=== PATIENT | male | born 2000 | race Caucasian/White ===

== ENCOUNTER 2023-09-10 12:13 | Emergency (ER) | payer OTHER ==
[~2023-09-10] VITALS: Ht 175.3 cm; Wt 106.1 kg
[2023-09-10 12:36] VITALS: BP 131/60; PULSE 95; RESP 18; TEMP 98.2; O2SAT 99
[2023-09-10] MEDS ORDERED: IBUP-2213 PO (14:25)
== END 2023-09-10 14:35 | disposition home or self-care (01) ==
LOC: MED 12:13
DX: S83.92XA Sprain of unspecified site of left knee, initial encounter (principal); R03.0 Elevated blood-pressure reading, without diagnosis of hypertension; Z79.1 Long term (current) use of non-steroidal anti-inflammatories (NSAID); W01.0XXA Fall on same level from slipping, tripping and stumbling without subsequent striking against object, initial encounter; Y92.89 Other specified places as the place of occurrence of the external cause; Y93.89 Activity, other specified; Y99.8 Other external cause status
CPT/HCPCS: 29505; 73562; 99283

== ENCOUNTER 2024-03-07 02:45 | Emergency (ER) | payer OTHER ==
[~2024-03-07] VITALS: Ht 175.3 cm; Wt 108.9 kg
[~2024-03-07 02:45] MED LIST: IBUP-2213 PO
[2024-03-07 02:47] VITALS: BP 140/90; PULSE 76; RESP 17; TEMP 98.3; O2SAT 97
[2024-03-07] MEDS: methylPREDNISolone SS 125 MG/2 ML VIAL IVP ONE (03:12)
[2024-03-07] MEDS: diphenhydrAMINE 50 MG/ML VIAL IVP ONE (03:13)
[2024-03-07] MEDS: FAMOTIDINE 20 MG/2 ML VIAL IVP ONE (03:13)
[2024-03-07 03:16] VITALS: BP 134/90; PULSE 76; RESP 17; TEMP 98.3; O2SAT 97
[2024-03-07 03:32] LABS: ANION GAP 14.5 (8-16); CALCIUM 8.3 mg/dL (8.5-10.1); CARBON DIOXIDE 30.9 mmol/L (21-32); POTASSIUM 3.4 mmol/L (3.5-5.1)
[2024-03-07 03:38] LABS: BASOPHILS % (AUTO) 0.3 % (0.0-2.0); EOSINOPHILS # (AUTO) 0.1 K/uL (0-0.4); HEMATOCRIT 48.2 % (36-52); HEMOGLOBIN 16.5 g/dL (12.0-18.0); LYMPHOCYTES # (AUTO) 2.4 K/uL (2.0-11.5); LYMPHOCYTES % (AUTO) 25.3 % (20.5-51.1); MEAN CORPUSCULAR HEMOGLOBIN 29 pg (27-31); MEAN CORPUSCULAR HGB CONC 34 g/dL (33-37); MEAN CORPUSCULAR VOLUME 85.6 fL (80-94); MONOCYTES # (AUTO) 0.4 K/uL (0.8-1.0); MONOCYTES % (AUTO) 4.5 % (1.7-9.3); NEUTROPHILS # (AUTO) 6.6 K/uL (1.8-7.7); NEUTROPHILS % (AUTO) 68.9 % (42.2-75.2); PLATELET COUNT (AUTO) 279 K/uL (140-450); RED BLOOD CELL COUNT(AUTO) 5.64 MIL/uL (4.20-6.10); RED CELL DISTRIBUTION WIDTH 13.5 % (11.6-13.7); WHITE BLOOD COUNT (AUTO) 9.6 K/uL (4.8-10.8)
[2024-03-07 03:47] LABS: BILIRUBIN,DIRECT 0.1 mg/dL (0.0-0.3); TOTAL BILIRUBIN 0.5 mg/dL (0.0-1.0)
[2024-03-07] MEDS ORDERED: TETRACAINE HCL/PF 0.5% OPTH 4 ML BTL ONE (03:52)
[2024-03-07] MEDS: TETRACAINE HCL/PF 0.5% OPTH 4 ML BTL OP ONE (03:56)
[2024-03-07] MEDS ORDERED: PRED20TA5 PO (04:10)
[2024-03-07] MEDS ORDERED: BEN50 PO (04:10)
== END 2024-03-07 04:18 | disposition home or self-care (01) ==
LOC: MED 02:45
DX: H57.89 Other specified disorders of eye and adnexa (principal); T78.49XA Other allergy, initial encounter; Z79.1 Long term (current) use of non-steroidal anti-inflammatories (NSAID); Z79.899 Other long term (current) drug therapy; X58.XXXA Exposure to other specified factors, initial encounter
CPT/HCPCS: 36415; 80048; 80076; 85025; 96374; 96375; 99284; J1200; J2930; J3490